=== PATIENT | male | born 1970 | race American Indian/Alaskan Native ===

== ENCOUNTER 2021-03-19 18:26 | Emergency (ER) | payer OTHER ==
[2021-03-19] MEDS ORDERED: ONDANSETRON 4 MG ODT TAB PO ONE (18:41)
[2021-03-19] MEDS ORDERED: ONDANSETRON 4 MG ODT TAB ONE (18:41)
--- NOTE | 2021-03-19 18:43 | Event Note ---
ED Screening Note ED Screening Note: Patient presents for nausea and vomiting that began last night Has a history of gastroparesis He is complaining of epigastric abdominal pain, chest pain, shortness of breath He denies any diarrhea, fever, cough He did get vaccinated for COVID-19 This initial assessment/diagnostic orders/clinical plan/treatment(s) is/are subject to change based on patients health status, clinical progression and re- assessment by fellow clinical providers in the ED. Further treatment and workup at subsequent clinical providers discretion. Patient/guardian urged not to elope from the ED as their condition may be serious if not clinically assessed and managed. Initial orders include: Labs, x-ray, EKG, Zofran
[2021-03-19 19:15] LABS: Basophils % (Auto) 0.3 % (0.0-1.8); Eosinophils # (Auto) 0.8 K/mm3 (0.0-0.4); Eosinophils % (Auto) 7.7 % (0.0-4.3); Hematocrit 44.7 % (35.5-45.6); Hemoglobin 14.9 gm/dl (11.8-15.2); Lymphocytes # (Auto) 3.2 K/mm3 (1.2-5.4); Lymphocytes % (Auto) 30.4 % (13.4-35.0); Mean Corpuscular HGB Conc 33 % (32-34); Mean Corpuscular Volume 86 fl (84-94); Monocytes # (Auto) 0.7 K/mm3 (0.0-0.8); Monocytes % (Auto) 6.9 % (0.0-7.3); Platelet Count 282 K/mm3 (140-440); Red Blood Count 5.21 M/mm3 (3.65-5.03); Red Cell Distribution Width 13.9 % (13.2-15.2)
[2021-03-19 19:22] VITALS: BP 172/101
--- NOTE | 2021-03-19 19:27 | XRay Report ---
ABDOMEN 5 VIEW(S) INDICATION / CLINICAL INFORMATION: abd pain, CP, SOB. COMPARISON: 03/31/2020 FINDINGS: TUBES / LINES: None. BOWEL GAS PATTERN: No significant abnormality. FREE AIR / EXTRALUMINAL GAS: None seen. ADDITIONAL FINDINGS: No abnormality is seen on the included chest radiograph. IMPRESSION: 1. No acute findings. Signer Name: Chavo Leyva MD Signed: 03/19/2021 7:22 PM Workstation Name: [id number]
[2021-03-19 19:36] LABS: Alanine Aminotransferase 15 units/L (7-56); BUN/Creatinine Ratio 11; Blood Urea Nitrogen 10 mg/dL (9-20); Calcium 9.2 mg/dL (8.4-10.2); Hemolysis Index 11
--- NOTE | 2021-03-20 11:14 | Electrocardiograph Report ---
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
== END 2021-03-19 22:00 | disposition left against medical advice (07) ==
LOC: ED 18:26
DX: R10.9 Unspecified abdominal pain (principal); Z53.21 Procedure and treatment not carried out due to patient leaving prior to being seen by health care provider
CPT/HCPCS: 36415; 74022; 80053; 82962; 83690; 84484; 85025; 93005; Q0162

== ENCOUNTER 2021-05-01 02:58 | Observation (INO) | payer OTHER ==
[2021-05-01] MEDS ORDERED: ONDANSETRON 4 MG/2 ML INJ ONE (03:08)
[2021-05-01] MEDS ORDERED: MORPHINE 4 MG/1 ML INJ IV ONE (03:20)
[2021-05-01] MEDS ORDERED: ONDANSETRON 4 MG/2 ML INJ IV ONE ×2 (03:20→03:46)
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
[2021-05-01] MEDS ORDERED: METOCLOPRAMIDE 10 MG/2 ML INJ IV ONE (04:02)
--- NOTE | 2021-05-01 04:06 | XRay Report ---
CHEST 1 VIEW INDICATION / CLINICAL INFORMATION: Chest Pain. FINDINGS: SUPPORT DEVICES: None. HEART / MEDIASTINUM: No significant abnormality. LUNGS / PLEURA: No significant pulmonary or pleural abnormality. No pneumothorax. ADDITIONAL FINDINGS: No significant additional findings. IMPRESSION: 1. No acute findings. Signer Name: Jaison Bruno MD Signed: 05/01/2021 4:01 AM Workstation Name: [id number]
[2021-05-01 04:18] LABS: Alanine Aminotransferase 11 units/L (7-56); Albumin 3.6 g/dL (3.9-5); BUN/Creatinine Ratio 6; Blood Urea Nitrogen 8 mg/dL (9-20); Calcium 9.1 mg/dL (8.4-10.2); Hemolysis Index 33
[2021-05-01 04:25] LABS: Basophils # (Auto) 0.1 K/mm3 (0.0-0.1); Basophils % (Auto) 0.7 % (0.0-1.8); Eosinophils # (Auto) 0.3 K/mm3 (0.0-0.4); Eosinophils % (Auto) 2.4 % (0.0-4.3); Hematocrit 43.4 % (35.5-45.6); Hemoglobin 14.5 gm/dl (11.8-15.2); Lymphocytes # (Auto) 2.6 K/mm3 (1.2-5.4); Lymphocytes % (Auto) 24.8 % (13.4-35.0); Mean Corpuscular HGB Conc 33 % (32-34); Mean Corpuscular Volume 84 fl (84-94); Monocytes # (Auto) 0.6 K/mm3 (0.0-0.8); Platelet Count 355 K/mm3 (140-440); Red Blood Count 5.19 M/mm3 (3.65-5.03); Red Cell Distribution Width 14.1 % (13.2-15.2)
[2021-05-01 04:35] LABS: INR 0.93 (0.87-1.13)
[2021-05-01 04:36] LABS: Partial Thromboplastin Time 26.2 Sec. (24.2-36.6)
[2021-05-01] MEDS ORDERED: NITROGLYCERIN 0.4 MG TAB SUBL SL PRN (05:45)
[2021-05-01] MEDS ORDERED: traMADol 50 MG TAB PO PRN (05:45)
[2021-05-01] MEDS ORDERED: ACETAMINOPHEN 325 MG TAB PO PRN ×2 (05:45→10:00)
[2021-05-01] MEDS ORDERED: MORPHINE 2 MG/1 ML INJ IV PRN (05:45)
--- NOTE | 2021-05-01 05:58 | History and Physical Report ---
History of Present Illness Date of examination: 05/01/21 Date of admission: 05/01/21 Chief complaint: Chest pain History of present illness: 50-year-old male with past medical history of hypertension, severe, HIV was brought to the hospital because of chest pain. Chest pain is substernal left- sided 10/10 sharp constant improved with rest and worse with exertion and movement. Patient denies shortness of breath. Patient denies fever and chills. Initial troponin is 0.012. Chest x-ray shows no acute finding Med rec is done. Past History Past Medical History: diabetes, HIV/AIDS, hypertension, stroke Medications and Allergies Allergies Allergy/AdvReac Type Severity Reaction Status Date / Time No Known Allergies Allergy Verified 03/19/21 18:35 Home Medications Medication Instructions Recorded Confirmed Last Taken Type Efavirenz/Emtricit/Tenofovr Df 1 each PO QDAY 12/29/13 11/23/18 Unknown History [Atripla Tablet] AtorvaSTATin [Lipitor] 40 mg PO QHS #30 tablet 10/25/18 11/23/18 Unknown Rx clonazePAM [KlonoPIN] 0.5 mg PO BID PRN #30 tablet 10/25/18 11/23/18 Unknown Rx Metoclopramide [Reglan TAB] 10 mg PO Q6HR PRN #20 tab 04/08/19 Unknown Rx Acetaminophen [Acetaminophen TAB] 650 mg PO Q4H PRN tablet 10/20/19 Unknown Rx Lispro Insulin [HumaLOG] 0 unit SUB-Q Q6HR units 10/20/19 Unknown Rx QUEtiapine [SEROquel] 25 mg PO BID tablet 10/20/19 Unknown Rx Adult Aspirin 81 mg PO QDAY 10/28/19 10/28/19 Unknown History Biktarvy 50-200-25 mg (Nf) 25 mg PO DAILY 10/28/19 10/28/19 Unknown History Doravirine 100 mg PO QDAY 10/28/19 10/28/19 Unknown History Imiquimod 1 applic SD 4XD 10/28/19 10/28/19 Unknown History Atovaquone [Mepron] 1,500 mg PO DAILY oralsyr 11/08/19 Unknown Rx Melatonin [Melatonin 5MG TAB] 10 mg PO QHS tablet 11/08/19 Unknown Rx risperiDONE [RisperDAL] 0.5 mg PO BID tablet 11/08/19 Unknown Rx Pantoprazole [Protonix TAB] 20 mg PO QDAY #30 tablet. 04/02/20 Unknown Rx Potassium Chloride [K-Dur] 20 meq PO BID #5 tab 04/02/20 Unknown Rx oxyCODONE /ACETAMINOPHEN [Percocet 1 tab PO Q6H PRN #14 tablet 04/02/20 Unknown Rx 5/325 mg] Active Meds: Active Medications Acetaminophen (Acetaminophen 325 Mg Tab) 650 mg PO Q6H PRN PRN Reason: Pain, Mild (1-3) Aspirin (Aspirin Ec 325 Mg Tab) 325 mg PO QDAY BECCA Atorvastatin Calcium (Atorvastatin 40 Mg Tab) 40 mg PO QHS BECCA Atorvastatin Calcium (Atorvastatin 40 Mg Tab) 40 mg PO QHS BECCA Atovaquone (Atovaquone 750 Mg/5 Ml Oral Susp) 1,500 mg PO DAILY BECCA Clonazepam (Clonazepam 0.5 Mg Tab) 0.5 mg PO BID PRN PRN Reason: Anxiety Heparin Sodium (Porcine) (Heparin 5,000 Unit/1 Ml Vial) 5,000 unit SUB-Q Q8HR [facility] Metoclopramide HCl (Metoclopramide 10 Mg Tab) 10 mg PO Q6HR PRN PRN Reason: Nausea Miscellaneous Medication (Biktarvy 50-200-25 Mg (Nf)) 25 mg PO DAILY [facility] Miscellaneous Medication (Doravirine) 100 mg PO QDAY [facility] Miscellaneous Medication (Efavirenz/Emtricit/Tenofovr Df [Atripla Tablet]) 1 each PO QDAY [facility] Miscellaneous Medication (Imiquimod) 1 applic SD 4XD [facility] Morphine Sulfate (Morphine 4 Mg/1 Ml Inj) 2 mg IV Q5MIN PRN PRN Reason: Chest Pain unrelieved by NTG Nitroglycerin (Nitroglycerin 0.4 Mg Tab Subl) 0.4 mg SL Q5M PRN PRN Reason: Chest Pain Pantoprazole Sodium (Pantoprazole 40 Mg Tab) 40 mg PO QDAY BECCA Quetiapine Fumarate (Quetiapine 25 Mg Tab) 25 mg PO BID BECCA Risperidone (Risperidone 0.25 Mg Tab) 0.5 mg PO BID BECCA Sodium Chloride (Sodium Chloride 0.9% 10 Ml Flush Syringe) 10 ml IV PRN PRN PRN Reason: LINE FLUSH Tramadol HCl (Tramadol 50 Mg Tab) 50 mg PO Q6H PRN PRN Reason: Pain, Moderate (4-6) Review of Systems All systems: negative Cardiovascular: chest pain Exam - Constitutional Vitals: Temp Pulse Resp BP Pulse Ox 110 H 18 156/137 98 05/01/21 03:07 05/01/21 03:07 05/01/21 03:07 05/01/21 03:45 General appearance: Present: no acute distress, well-nourished - EENT Eyes: Present: PERRL ENT: hearing intact, clear oral mucosa - Neck Neck: Present: supple, normal ROM - Respiratory Respiratory effort: normal Respiratory: bilateral: diminished - Cardiovascular Heart Sounds: Present: S1 & S2. Absent: rub, click - Extremities Extremities: pulses symmetrical, No edema Peripheral Pulses: within normal limits - Abdominal General gastrointestinal: Present: soft, non-tender, non-distended, normal bowel sounds Male genitourinary: Present: normal - Integumentary Integumentary: Present: clear, warm, dry - Musculoskeletal Musculoskeletal: gait normal, strength equal bilaterally - Psychiatric Psychiatric: appropriate mood/affect, intact judgment & insight - Neurologic Neurologic: CNII-XII intact, moves all extremities HEART Score - HEART Score EKG: Non-specific Age: 45-65 Risk factors: > 3 risk factors or hx of atherosclerotic disease Troponin: Troponin T 0.012 ng/mL (0.00-0.029) 05/01/21 03:23 Troponin: < normal limit Results - Labs CBC & Chem 7: 05/01/21 03:23 05/01/21 03:23 Labs: Laboratory Last Values WBC 10.3 K/mm3 (4.5-11.0) 05/01/21 03:23 RBC 5.19 M/mm3 (3.65-5.03) H 05/01/21 03:23 Hgb 14.5 gm/dl (11.8-15.2) 05/01/21 03:23 Hct 43.4 % (35.5-45.6) 05/01/21 03:23 MCV 84 fl (84-94) 05/01/21 03:23 MCH 28 pg (28-32) 05/01/21 03:23 MCHC 33 % (32-34) 05/01/21 03:23 RDW 14.1 % (13.2-15.2) 05/01/21 03:23 Plt Count 355 K/mm3 (140-440) 05/01/21 03:23 Lymph % (Auto) 24.8 % (13.4-35.0) 05/01/21 03:23 [place] % (Auto) 6.0 % (0.0-7.3) 05/01/21 03:23 Eos % (Auto) 2.4 % (0.0-4.3) 05/01/21 03:23 Baso % (Auto) 0.7 % (0.0-1.8) 05/01/21 03:23 Lymph # (Auto) 2.6 K/mm3 (1.2-5.4) 05/01/21 03:23 [place] # (Auto) 0.6 K/mm3 (0.0-0.8) 05/01/21 03:23 Eos # (Auto) 0.3 K/mm3 (0.0-0.4) 05/01/21 03:23 Baso # (Auto) 0.1 K/mm3 (0.0-0.1) 05/01/21 03:23 Seg Neutrophils % 66.1 % (40.0-70.0) 05/01/21 03:23 Seg Neutrophils # 6.8 K/mm3 (1.8-7.7) 05/01/21 03:23 PT 13.0 Sec. (12.2-14.9) 05/01/21 03:23 INR 0.93 (0.87-1.13) 05/01/21 03:23 APTT 26.2 Sec. (24.2-36.6) 05/01/21 03:23 Sodium 135 mmol/L (137-145) L 05/01/21 03:23 Potassium 3.7 mmol/L (3.6-5.0) 05/01/21 03:23 Chloride 93.7 mmol/L (98-107) L 05/01/21 03:23 Carbon Dioxide 22 mmol/L (22-30) 05/01/21 03:23 Anion Gap 23 mmol/L 05/01/21 03:23 BUN 8 mg/dL (9-20) L 05/01/21 03:23 Creatinine 1.3 mg/dL (0.8-1.3) 05/01/21 03:23 Estimated GFR > 60 ml/min 05/01/21 03:23 BUN/Creatinine Ratio 6 % 05/01/21 03:23 Glucose 296 mg/dL (75-100) H 05/01/21 03:23 Calcium 9.1 mg/dL (8.4-10.2) 05/01/21 03:23 Total Bilirubin 0.90 mg/dL (0.1-1.2) 05/01/21 03:23 AST 14 units/L (5-40) 05/01/21 03:23 ALT 11 units/L (7-56) 05/01/21 03:23 Alkaline Phosphatase 205 units/L (35-129) H 05/01/21 03:23 Troponin T 0.012 ng/mL (0.00-0.029) 05/01/21 03:23 Total Protein 8.0 g/dL (6.3-8.2) 05/01/21 03:23 Albumin 3.6 g/dL (3.9-5) L 05/01/21 03:23 Albumin/Globulin Ratio 0.8 % 05/01/21 03:23 - Imaging and Cardiology Chest x-ray: report reviewed Assessment and Plan VTE prophylaxis?: Chemical Plan of care discussed with patient/family: Yes - Patient Problems (1) Acute coronary syndrome Current Visit: No Status: Acute Plan to address problem: Admit the patient to the medical telemetry. Aspirin 325 mg p.o. daily. Lipitor 40 mg p.o. daily. We do the serial cardiac enzyme. We also do echocardiogram. Consult cardiology if needed (2) Hypertension Current Visit: Yes Status: Acute Plan to address problem: Hydralazine 10 mg IV every 6 hours as needed. We continue the home medication (3) Type 2 diabetes mellitus with diabetic chronic kidney disease Current Visit: No Status: Acute Plan to address problem: We will put the patient on Accu-Chek before meals and at bedtime with Humalog moderate dose coverage. Will consult diabetic education. We will continue the home medication (4) HIV (human immunodeficiency virus infection) Current Visit: No Status: Chronic Qualifiers: HIV symptom status: unspecified Qualified Code(s): B20 - Human immunodeficiency virus [HIV] disease Plan to address problem: Stable. We will continue the home HIV medication. Outpatient follow-up with in fectious disease (5) CVA (cerebral vascular accident) Current Visit: Yes Status: Acute Plan to address problem: Stable. Aspirin 325 mg p.o. daily. Lipitor 40 mg p.o. daily (6) DVT prophylaxis Current Visit: No Status: Acute Plan to address problem: Heparin 5000 units subcu every 8 hours for DVT prophylaxis. Pepcid 20 mg p.o. twice daily for GI prophylaxis. Patient is a full code
[2021-05-01] MEDS: METOCLOPRAMIDE 10 MG TAB PO PRN ×2 (06:40→21:53)
[2021-05-01] MEDS: HEPARIN 5,000 UNIT/1 ML VIAL SUB-Q SCH ×3 (07:11→21:50)
[2021-05-01] MEDS: clonazePAM 0.5 MG TAB PO PRN ×2 (07:40→21:50)
[2021-05-01] MEDS ORDERED: IBUPROFEN 600 MG TAB PO PRN (09:30)
--- NOTE | 2021-05-01 09:43 | XRay Report ---
BILATERAL FOOT 4 VIEW(S) INDICATION / CLINICAL INFORMATION: Concern for osteomyelitis with foot pain and swelling COMPARISON: None available. FINDINGS: BONES / JOINT(S): Dilatation of the left 1st ray at the level of the mid metatarsal. No acute fractur e or subluxation of either foot. No osseous destruction. The left 2nd through 5th toes demonstrate mo derate flexion deformity at the PIP joints. SOFT TISSUES: Shallow soft tissue wound on the plantar aspect of the base of the left 2nd toe measuri ng 1.2 x 1.7 cm in cross-sectional area with a depth of 3 mm. No definite right foot soft tissue woun d. No soft tissue gas. ADDITIONAL FINDINGS: None. IMPRESSION: 1. Soft tissue wound on the plantar aspect of the left 2nd toe. No radiographic evidence for acute os teomyelitis. Signer Name: Ailyn Dalton MD Signed: 05/01/2021 9:39 AM Workstation Name: [id number]
[2021-05-01] MEDS ORDERED: ATOVAQUONE 750 MG/5 ML ORAL SUSP PO SCH (10:00)
[2021-05-01] MEDS ORDERED: DORAVIRINE 100 MG PO SCH (10:00)
[2021-05-01] MEDS ORDERED: IMIQUIMOD PR SCH (10:00)
[2021-05-01] MEDS ORDERED: BIKTARVY PO SCH (10:00)
[2021-05-01] MEDS ORDERED: [UNRECOGNIZED DRUG - OTHER] PO SCH (10:00)
[2021-05-01] MEDS ORDERED: PANTOPRAZOLE 40 MG TAB PO SCH (10:00)
[2021-05-01] MEDS: QUEtiapine 25 MG TAB PO SCH ×2 (10:33→21:50)
[2021-05-01] MEDS: risperiDONE 0.25 MG TAB PO SCH ×2 (10:34→21:50)
--- NOTE | 2021-05-01 10:36 | Electrocardiograph Report ---
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
--- NOTE | 2021-05-01 15:43 | Event Note ---
Date: 05/01/21 The patient was evaluated this morning. The patient was found to have chest pain more consistent with musculoskeletal pain. Low likelihood for cardiac etiology given tenderness to palpation of right upper chest. Echocardiogram revealing normal LV function with EF of 55 to 60%. X-ray of bilateral feet are negative for acute osteomyelitis. Patient will likely be discharged in a.m.
[2021-05-02 05:46] LABS: Basophils # (Auto) 0.1 K/mm3 (0.0-0.1); Basophils % (Auto) 0.9 % (0.0-1.8); Eosinophils # (Auto) 0.4 K/mm3 (0.0-0.4); Eosinophils % (Auto) 4.7 % (0.0-4.3); Hematocrit 36.8 % (35.5-45.6); Hemoglobin 12.4 gm/dl (11.8-15.2); Lymphocytes # (Auto) 3.1 K/mm3 (1.2-5.4); Lymphocytes % (Auto) 36.2 % (13.4-35.0); Mean Corpuscular HGB Conc 34 % (32-34); Mean Corpuscular Volume 84 fl (84-94); Monocytes # (Auto) 0.7 K/mm3 (0.0-0.8); Red Cell Distribution Width 13.9 % (13.2-15.2)
[2021-05-02 05:57] LABS: Calcium 8.7 mg/dL (8.4-10.2)
[2021-05-02 06:38] LABS: Platelet Count 314 K/mm3 (140-440)
[2021-05-02] MEDS: HEPARIN 5,000 UNIT/1 ML VIAL SUB-Q SCH (06:58)
[2021-05-02] MEDS ORDERED: LACTATED RINGERS 1,000 ML IV ONE (08:03)
[2021-05-02 08:43] VITALS: BP 95/68
[2021-05-02] MEDS ORDERED: ASPIRIN EC 325 MG TAB PO SCH (10:00)
--- NOTE | 2021-05-02 14:44 | Discharge Summary ---
Providers - Providers Date of Admission: 05/01/21 05:45 Date of discharge: 05/02/21 Attending physician: MAYKEL DIAZ MD 05/01/21 Consult to Cardiac Rehabilitation [CONS] Routine Reason For Exam: Phase I Primary care physician: YEAST MAKER Hospitalization Reason for admission: Chest pain Condition: Critical Pertinent studies: Reviewed. Procedures: Echocardiogram Hospital course: 50-year-old male with past medical history of hypertension, severe, HIV was brought to the hospital because of chest pain. The patient was evaluated for possible acute coronary syndrome. The patient's troponins were negative x3. With further investigation the patient endorsed having right sided chest pain that was worsened with palpation. Patient underwent went a TTE that revealed normal LV function. Patient left AMA. Disposition: AGAINST MEDICAL ADVICE Final Discharge Diagnosis (Prints w/discharge instructions): Musculoskeletal pain Time spent for discharge: 30 min Core Measure Documentation - Palliative Care Palliative Care/ Comfort Measures: Not Applicable - Core Measures Any of the following diagnoses?: none - VTE Discharge Requirements Deep Vein Thrombosis/Pulmonary Embolism Present on Admission: No Has pt received <5 days of overlap therapy or INR<2.0: No (Not applicable) Anticoagulant overlap therapy prescribed at discharge: No Contraindication No Overlap Therapy order at DC: Not Indicated - Acute IN Discharge Requirements Aspirin at discharge: No Reason for no aspirin on DC: Medical contraindication (Not indicate) WESLEY/ARB for LVSD if EF <40%: Not Applicable Reason for no WESLEY/ARB: Medical contraindication Beta dandre at discharge: No (Not indicated) Reason for no beta dandre on DC: Medical contraindication (Not indicated) Statin for LDL = or >100 mg/dl on DC: Not Applicable - Heart Failure Discharge Requirements WESLEY/ARB for LVSD if EF <40%: Not Applicable Reason for no WESLEY/ARB: Medical contraindication Beta dandre at discharge: No (Not in) Reason for no beta dandre on DC: Medical contraindication - Stroke Discharge Requirements Statin for LDL = or >70 mg/dl on DC: Not Applicable Reason for no statin on DC: Not Indicated Anticoag for atrial fib/atrial flutter: Not Applicable Reason for no anticoag for AF/F on DC: Not Indicated Antithrombotic for ischemic stroke: No Reason for no antithrombotic on DC: Not Indicated Exam - Constitutional Vitals: Temp Pulse Resp BP Pulse Ox 98.4 F 96 H 18 95/68 96 05/02/21 08:41 05/02/21 08:41 05/02/21 08:41 05/02/21 08:41 05/02/21 10:11 General appearance: Present: no acute distress - EENT Eyes: Present: PERRL, EOM intact ENT: hearing intact, clear oral mucosa, dentition normal - Neck Neck: Present: supple, normal ROM - Respiratory Respiratory effort: normal - Cardiovascular Rhythm: regular Heart Sounds: Present: S1 & S2 - Extremities Extremities: no ischemia, pulses intact, pulses symmetrical, No edema, normal temperature, normal color Peripheral Pulses: within normal limits - Abdominal General gastrointestinal: Present: soft, non-tender, non-distended, normal bowel sounds Male genitourinary: Present: deferred - Rectal Rectal Exam: deferred - Integumentary Integumentary: Present: clear, warm, clammy - Musculoskeletal Musculoskeletal: strength equal bilaterally - Psychiatric Psychiatric: appropriate mood/affect, memory intact, cooperative - Neurologic Neurologic: CNII-XII intact, moves all extremities - Allied Health Allied health notes reviewed: nursing Plan Follow up with: PRIMARY MD ANTONIETA [Primary Care Provider] - 3-5 Days Forms: AMA Form
== END 2021-05-02 15:38 | disposition left against medical advice (07) ==
LOC: ED 02:58 → 4A 05:45
PROVIDERS: ADMIT Hospitalist; ATTEND Student in an Organized Health Care Education/Training Program
DX: I24.9 Acute ischemic heart disease, unspecified (principal); I12.9 Hypertensive chronic kidney disease with stage 1 through stage 4 chronic kidney disease, or unspecified chronic kidney disease; N18.9 Chronic kidney disease, unspecified; E11.22 Type 2 diabetes mellitus with diabetic chronic kidney disease; I63.9 Cerebral infarction, unspecified; K31.84 Gastroparesis; B20 Human immunodeficiency virus [HIV] disease; Z79.82 Long term (current) use of aspirin
CPT/HCPCS: 36415; 71045; 73620; 80048; 80053; 83735; 84100; 84484; 85025; 85610; 85730; 93005; 93306; 96374; 96375; 96376; 99291; A9270; G0378; J1644; J2270; J2405; J2765; J7120